=== PATIENT | female | born 1950 | race Caucasian/White ===

== ENCOUNTER 2017-12-28 19:13 | Emergency (ER) | payer OTHER ==
--- NOTE | 2017-12-28 20:15 | EDM.PDOC ---
ED HPI GENERAL MEDICAL PROBLEM - General Chief Complaint: Upper Extremity Injury/Pain Stated Complaint: DISLOCATED ELBOW RIGHT ARM Time Seen by Provider: 12/28/17 19:41 Source of Information: Reports: Patient History Limitations: Reports: No Limitations - History of Present Illness INITIAL COMMENTS - FREE TEXT/NARRATIVE: fell while playing a game; landed on her right elbow; pain and swelling Used ice to the area [place] She has declined anything for pain. Onset: Today Location: Reports: Upper Extremity, Right (elbow) Quality: Reports: Ache, Sharp (painful with movement) Severity: Moderate Improves with: Reports: Cold Therapy, Immobilization Worsens with: Reports: Movement Associated Symptoms: Reports: No Other Symptoms Right Elbow Pain Score (Numeric/FACES): 10 - Related Data Allergies Allergy/AdvReac Type Severity Reaction Status Date / Time No Known Allergies Allergy Verified 12/28/17 19:40 Home Meds: Home Meds NK [No Known Home Meds] 12/28/17 [History] Past Medical History - Past Health History Medical/Surgical History: Denies Medical/Surgical History - Infectious Disease History Infectious Disease History: Reports: Chicken Pox Social & Family History - Tobacco Use Smoking Status *Q: Never Smoker Second Hand Smoke Exposure: No - Caffeine Use Caffeine Use: Reports: Coffee, Soda - Recreational Drug Use Recreational Drug Use: No Review of Systems - Review of Systems Review Of Systems: ROS reveals no pertinent complaints other than HPI. ED EXAM, GENERAL - Physical Exam Exam: See Below Exam Limited By: No Limitations General Appearance: Alert, WD/WN, No Apparent Distress Neck: Full Range of Motion Respiratory/Chest: No Respiratory Distress, Lungs Clear, Normal Breath Sounds Cardiovascular: Regular Rate, Rhythm Extremities: Other (right elbow, swollen, tender, decreased rom. No open area's , cms intact. Cap refill less than 3 seconds) Neurological: Alert, Oriented, CN II-XII Intact Course - Vital Signs Last Recorded V/S: Last Vital Signs Temp 98.2 F 12/28/17 19:38 Pulse 55 L 12/28/17 19:38 Resp 18 12/28/17 19:38 BP 120/50 L 12/28/17 19:38 Pulse Ox 98 12/28/17 19:38 - Orders/Labs/Meds Orders: Active Orders 24 hr Category Date Time Status Elbow Min 3V Rt [CR] Stat Exams 12/28/17 19:52 Taken - Re-Assessments/Exams Free Text/Narrative Re-Assessment/Exam: 12/28/17 21:16 Xray shows comminuted fracture of right elbow with displacement; Posterior splint applied without complication; sling placed. Tolerated well +CMS post splint; Departure - Departure Time of Disposition: 21:00 Disposition: Home, Self-Care 01 Condition: Good Clinical Impression: Elbow fracture, right, Fracture of elbow - Discharge Information Instructions: Olecranon Fracture Referrals: PCP,None [Primary Care Provider] - Forms: ED Department Discharge Additional Instructions: Ice Keep in splint until you are seen by ortho; do not get it wet Hydrocodone for pain. Or Tylenol if you do not need anything stronger. Keep immobilized as much as possible. Call with concerns. ED Communication - ED Communication Date/Time Date: 12/28/17 (1999) - Discussed Case With (1) Discussed Case With (1): Other (Spoke with ortho, Dr. Hare; he reviewed xrays; recommend posterior splint and sling, FU outpatient; didn't feel this would be an emergent procedure;) - Problem List & Annotations (1) Elbow fracture, right SNOMED Code(s): 800783652 Code(s): S42.401A - UNSP FRACTURE OF LOWER END OF RIGHT HUMERUS, INIT Status: Acute Priority: Medium Current Visit: Yes Qualifiers: Encounter type: initial encounter Fracture type: closed Qualified Code(s) : S42.401A - Unspecified fracture of lower end of right humerus, initial encounter for closed fracture - My Orders Last 24 Hours: My Active Orders 12/28/17 19:52 Elbow Min 3V Rt [CR] Stat - Assessment/Plan Last 24 Hours: My Active Orders 12/28/17 19:52 Elbow Min 3V Rt [CR] Stat
--- NOTE | 2017-12-29 10:54 | PCM.SN ---
- Free Text/Narrative Note: I reviewed the x-rays this morning. I was unaware that there was an elbow dislocation. This is a dislocation of the radial head. The proximal portion of the olecranon is actually still located proximal to the fracture site. I then spoke with the patient. 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 She is leaving tomorrow and will land 11:30 AM. She is already spoken with the system and is awaiting a phone call to coordinate care. I went over ways to reduce swelling and made sure that she was still able to move her fingers and had good feeling in them as well. She does have appropriate swelling. We talked about ice and elevation. I gave her my phone number and described the fracture so that she can communicate this with the physician in [place]. I explained that I be happy to speak with them as well.
--- NOTE | 2017-12-30 10:31 | CR ---
Elbow Min 3V Rt INDICATION: fell, significant swelling and limited rom COMPARISON: None FINDINGS: 3 views. Comminuted fracture base of the olecranon proximal ulna with dorsal displacemen t of the distal fracture fragment. There is also posterior dislocation of the head of the radius. Pro bable impaction fracture on the capitellum.
== END 2017-12-28 21:00 | disposition home or self-care (01) ==
LOC: JP.ED 19:13
DX: S52.021A Displaced fracture of olecranon process without intraarticular extension of right ulna, initial encounter for closed fracture (principal); W19.XXXA Unspecified fall, initial encounter
CPT/HCPCS: 29105; 73080-26-RT; 73080-RT; 99284-25